=== PATIENT | female | born 1980 | race Caucasian/White ===

== ENCOUNTER 2016-12-10 18:02 | Inpatient (IN) | payer BC ==
[~2016-12-10] VITALS: Ht 167.6 cm; Wt 101.1 kg
[~2016-12-10 18:02] MED LIST: BACT800T5 PO; CEPH500C3 PO; IBUP-238 PO; MEDR4PAK3 PO; PERC5TAB12 PO
[2016-12-10 18:05] VITALS: BP 140/95; PULSE 104; RESP 20; TEMP 97.8; O2SAT 100
[2016-12-10] MEDS ORDERED: SODIUM CHLOR 0.9% 1000 ML INJ 1,000 ML IV ONE ×2 (19:01→21:45)
--- NOTE | 2016-12-10 19:09 | PD ---
HPI Chief Complaint: Abnormal Results Time Seen by Provider: 19:01 Travel History International Travel<30 days: No Contact w/Intl Traveler<30days: No Traveled to known affect area: No History of Present Illness HPI 36-year-old female presents to the emergency department sent by Dr. Simone dunn for elevated CK of almost 7000. She states she has been having muscle pain and generalized weakness for a couple of weeks. He sent her for laboratory yesterday thinking she had autoimmune disease. He did put her on prednisone. She states she is feeling better with the prednisone. However, he called her today instructed to come the emergency department. Patient denies any recent trauma. She denies any new exercise routines. Patient states she is on Celexa as well. She denies any chance of . No chest pain. No fevers or chills. She states that she has leg pain, arm pain, back pain with movement only. [facility] Past Medical History LMP: 11/13/16 : 1 Para: 1 Past Surgical History Abdominal Surgery: Yes (GASTRIC BYPASS 2005) Tympanostomy Tube: Yes Social History Alcohol Use: No Tobacco Use: No Substance Use: No Allergies-Medications (Allergen,Severity, Reaction): Coded Allergies: No Known Allergies (Verified , 12/10/16) Reported Meds & Prescriptions Reported Meds & Active Scripts Active Reported Celexa (Citalopram Hydrobromide) 10 Mg Tab 10 Mg PO DAILY Prednisone 20 Mg Tab 60 Mg PO DAILY Review of Systems Except as stated in HPI: all other systems reviewed are Neg Physical Exam Narrative GENERAL: Well-nourished, well-developed female patient, ambulatory. Afebrile. SKIN: Focused skin assessment warm/dry. HEAD: Normocephalic. Atraumatic. EYES: No scleral icterus. No injection or drainage. NECK: Supple, trachea midline. No JVD or lymphadenopathy. CARDIOVASCULAR: Regular rate and rhythm without murmurs, gallops, or rubs. RESPIRATORY: Breath sounds equal bilaterally. No accessory muscle use. Lungs sounds are clear to auscultation GASTROINTESTINAL: Abdomen soft, non-tender, nondistended. MUSCULOSKELETAL: No cyanosis, or edema. BACK: Nontender without obvious deformity. No CVA tenderness. Data Data Last Documented VS Vital Signs Date Time Temp Pulse Resp B/P (MAP) Pulse Ox O2 Delivery O2 Flow Rate FiO2 12/10/16 20:44 75 20 123/59 (80) 98 12/10/16 19:53 Room Air 12/10/16 19:51 98.6 Orders Orders Electrocardiogram (12/10/16 19:01) Ed Urine Pregnancytest Poc (12/10/16 19:01) Complete Blood Count With Diff (12/10/16 19:01) Comprehensive Metabolic Panel (12/10/16 19:01) Magnesium (Mg) (12/10/16 19:01) Urinalysis - C+S If Indicated (12/10/16 19:01) Ecg Monitoring (12/10/16 19:01) Iv Access Insert/Monitor (12/10/16:01) Oximetry (12/10/16 19:01) Sodium Chloride 0.9% Flush (Ns Flush) (12/10/16 19:15) Sodium Chlor 0.9% 1000 Ml Inj (Ns 1000 M (12/10/16 19:01) Creatine Kinase (Cpk) (12/10/16 19:01) CKMB (12/10/16 20:15) CKMB% (12/10/16 20:15) Sodium Chlor 0.9% 1000 Ml Inj (Ns 1000 M (12/10/16 21:45) Admit Order (Ed Use Only) (12/10/16 21:45) Labs Laboratory Tests Test 12/10/16 19:50 12/10/16 20:15 Urine Color LIGHT-YELLOW Urine Turbidity CLEAR Urine pH 6.5 Urine Specific [place] 1.010 Urine Protein NEG mg/dL Urine Glucose (UA) NEG mg/dL Urine Ketones NEG mg/dL Urine Occult Blood NEG Urine Nitrite NEG Urine Bilirubin NEG Urine Urobilinogen LESS THAN 2.0 MG/DL Urine Leukocyte Esterase SMALL Urine RBC LESS THAN 1 /hpf Urine WBC 3 /hpf Urine Squamous Epithelial Cells 1 /hpf Microscopic Urinalysis Comment CULT NOT INDICATED White Blood Count 12.0 TH/MM3 Red Blood Count 4.30 MIL/MM3 Hemoglobin 12.6 GM/DL Hematocrit 38.5 % Mean Corpuscular Volume 89.5 FL Mean Corpuscular Hemoglobin 29.3 PG Mean Corpuscular Hemoglobin Concent 32.7 % Red Cell Distribution Width 15.7 % Platelet Count 245 TH/MM3 Mean Platelet Volume 10.1 FL Neutrophils (%) (Auto) 72.9 % Lymphocytes (%) (Auto) 16.7 % Monocytes (%) (Auto) 9.7 % Eosinophils (%) (Auto) 0.2 % Basophils (%) (Auto) 0.5 % Neutrophils # (Auto) 8.8 TH/MM3 Lymphocytes # (Auto) 2.0 TH/MM3 Monocytes # (Auto) 1.2 TH/MM3 Eosinophils # (Auto) 0.0 TH/MM3 Basophils # (Auto) 0.1 TH/MM3 CBC Comment DIFF FINAL Differential Comment Blood Urea Nitrogen 11 MG/DL Creatinine 0.41 MG/DL Random Glucose 90 MG/DL Total Protein 6.8 GM/DL Albumin 3.5 GM/DL Calcium Level 8.6 MG/DL Magnesium Level 2.1 MG/DL Alkaline Phosphatase 54 U/L Aspartate Amino Transf (AST/SGOT) 205 U/L Alanine Aminotransferase (ALT/SGPT) 220 U/L Total Bilirubin 0.3 MG/DL Sodium Level 139 MEQ/L Potassium Level 3.5 MEQ/L Chloride Level 106 MEQ/L Carbon Dioxide Level 25.0 MEQ/L Anion Gap 8 MEQ/L Estimat Glomerular Filtration Rate 175 ML/MIN Total Creatine Kinase 5224 U/L Creatine Kinase MB 401.8 NG/ML Creatine Kinase MB % 7.7 % [facility] Medical Decision Making Medical Screen Exam Complete: Yes Emergency Medical Condition: Yes Medical Record Reviewed: Yes Differential Diagnosis Rhabdomyolysis versus electrolyte abnormality versus dehydration versus ANNETTE Narrative Course 36-year-old female presents to the emergency department sent by her primary care physician for elevated CK. EKG, CBC, CMP, CK, UA, urine test, magnesium are ordered and pending. Patient is given normal saline 1 L IV bolus. EKG shows SR, HR 69, no acute changes. CBC shows leukocytosis 12.0. CMP shows elevated AST 205, ALT 220. Magnesium is 2.1. CK is 5224. UA is negative for acute infection. UPT is negative. Patient is given a liter normal saline IV bolus. Dr. Galvan accepted admission. Diagnosis Primary Impression: Rhabdomyolysis Qualified Codes: M62.82 - Rhabdomyolysis Admitting Information Admitting Physician Requests: Admit Herbert Matajohn SANCHEZ Dec 10, 2016 19:09
[2016-12-10] MEDS ORDERED: SODIUM CHLORIDE 0.9% FLUSH 10 ML FLUSH IVF PRN (19:15)
[2016-12-10 19:51] VITALS: BP 130/83; PULSE 106; RESP 20; TEMP 98.6; O2SAT 100
[2016-12-10] MEDS ORDERED: PRED20 PO (20:09)
[2016-12-10] MEDS ORDERED: CELE10TA PO (20:09)
[2016-12-10 20:19] LABS: BLOOD, URINE NEG (NEG); COMMENT (UR) CULT NOT INDICATED; CULTURE IF INDICATED CULT NOT INDICATED; GLUCOSE,URINE NEG (NEG); KETONE, URINE NEG (NEG); NITRITE,URINE NEG (NEG); PH, URINE 6.5 (5.0-8.5); SQUAMOUS EPITHELIAL CELL URINE 1 /hpf (0-5); URINE COLOR LIGHT-YELLOW (YELLW/STRAW)
[2016-12-10 20:41] LABS: AUTOMATED NEUTROPHIL # 8.8 TH/MM3 (1.8-7.7); BASOPHIL # 0.1 TH/MM3 (0-0.2); BASOPHIL % 0.5 % (0.0-2.0); EOSINOPHIL % 0.2 % (0.0-4.0); HEMATOCRIT 38.5 % (35.0-46.0); HEMO FLAGS DIFF FINAL; LYMPH % 16.7 % (9.0-44.0); MEAN CELL VOLUME 89.5 FL (80.0-100.0); MEAN CORPUSCULAR HEMOGLOBIN 29.3 PG (27.0-34.0); MEAN CORPUSCULAR HGB CONC 32.7 % (32.0-36.0); MONO % 9.7 % (0.0-8.0); NEUT % 72.9 % (16.0-70.0); PLATELET COUNT 245 TH/MM3 (150-450); RED CELL DISTRIBUTION WIDTH 15.7 % (11.6-17.2)
[2016-12-10 20:44] VITALS: BP 123/59; PULSE 75; RESP 20; O2SAT 98
[2016-12-10 20:54] LABS: ALT (GPT) 220 U/L (10-53); ANION GAP 8 MEQ/L (5-15); AST (GOT) 205 U/L (15-37); BLOOD UREA NITROGEN 11 MG/DL (7-18); CHLORIDE 106 MEQ/L (98-107); GLOMERULAR FILTRATION RATE 175 ML/MIN (>89); MAGNESIUM 2.1 MG/DL (1.5-2.5); POTASSIUM 3.5 MEQ/L (3.5-5.1); SODIUM (NA) 139 MEQ/L (136-145)
[2016-12-10 21:09] LABS: ALKALINE PHOSPHATASE 54 U/L (45-117); CREATINE KINASE 5224 U/L (26-192); TOTAL BILIRUBIN ADULT 0.3 MG/DL (0.2-1.0)
[2016-12-10 21:46] LABS: CKMB 401.8 NG/ML (0.5-3.6)
[2016-12-10] MEDS ORDERED: NALOXONE HCL 0.4 MG/ML AMP IV PRN (22:45)
[2016-12-10] MEDS ORDERED: SODIUM CHLORIDE 0.9% FLUSH 10 ML FLUSH IV FLUSH PRN (22:45)
[2016-12-10] MEDS: SODIUM CHLOR 0.9% 1000 ML INJ 1,000 ML IV SCH (22:48)
[2016-12-10 23:00] VITALS: BP 113/58; PULSE 90; RESP 20; O2SAT 100
[2016-12-11] VITALS (7 sets, daily range): BP systolic 94–123; BP diastolic 53–69; PULSE 65–88; RESP 16–18; TEMP 96.2–98.6; O2SAT 97–99
[2016-12-11 02:24] LABS: AUTOMATED NEUTROPHIL # 5.7 TH/MM3 (1.8-7.7); BASOPHIL % 0.4 % (0.0-2.0); EOSINOPHIL # 0.1 TH/MM3 (0-0.4); HEMATOCRIT 35.3 % (35.0-46.0); HEMO FLAGS DIFF FINAL; LYMPHOCYTE # 2.2 TH/MM3 (1.0-4.8); MEAN CELL VOLUME 90.7 FL (80.0-100.0); MEAN CORPUSCULAR HEMOGLOBIN 29.3 PG (27.0-34.0); MEAN CORPUSCULAR HGB CONC 32.3 % (32.0-36.0); MONO % 9.6 % (0.0-8.0); PLATELET COUNT 214 TH/MM3 (150-450); RED CELL DISTRIBUTION WIDTH 15.4 % (11.6-17.2); WHITE BLOOD COUNT 8.8 TH/MM3 (4.0-11.0)
[2016-12-11 02:55] LABS: ALT (GPT) 174 U/L (10-53); ANION GAP 7 MEQ/L (5-15); AST (GOT) 152 U/L (15-37); BICARBONATE 25.7 MEQ/L (21.0-32.0); BLOOD UREA NITROGEN 10 MG/DL (7-18); CHLORIDE 110 MEQ/L (98-107); GLOMERULAR FILTRATION RATE 165 ML/MIN (>89); POTASSIUM 3.1 MEQ/L (3.5-5.1); SODIUM (NA) 143 MEQ/L (136-145)
[2016-12-11 02:57] LABS: ALKALINE PHOSPHATASE 40 U/L (45-117); TOTAL BILIRUBIN ADULT 0.3 MG/DL (0.2-1.0)
[2016-12-11 04:27] LABS: CKMB 249.6 NG/ML (0.5-3.6)
--- NOTE | 2016-12-11 08:28 | EKG ---
Date Performed: 12/10/2016 Time Performed: 19:18:52 PTAGE: 36 years EKG: Sinus rhythm MINIMAL VOLTAGE CRITERIA FOR LVH, CONSIDER NORMAL VARIANT BORDERLINE ECG NO PREVIOUS TRACING DOCTOR: August Yee Interpretating Date/Time 12/11/2016 08:26:30
[2016-12-11] MEDS: SODIUM CHLOR 0.9% 1000 ML INJ 1,000 ML IV SCH (09:06)
[2016-12-11] MEDS: SODIUM CHLORIDE 0.9% FLUSH 10 ML FLUSH IV FLUSH SCH ×2 (09:07→23:43)
[2016-12-11 10:43] LABS: CKMB 265.1 NG/ML (0.5-3.6)
--- NOTE | 2016-12-11 13:14 | HHI.HP ---
[facility] Primary Care Physician Alex Myrick MD Admission Diagnosis rhabdomyolysis Diagnoses: Chief Complaint: muscle weakness and pain for 2 weeks Travel History International Travel<30 Days: No Contact w/Intl Traveler <30 Da: No Traveled to Known Affected Are: No History of Present Illness Patient is a very pleasant 36 eyars old female with no chronic medical condition who for the past 6-8 weeks has been complaining of muscle weakness mostly involving the proximal muscle of both upper and lower extremities. this can be better described as having difficulty with her usual ADLs like combing her hair, getting up from rthe chair taking her bra off.Patient denies any recent injury, fever or chills. She saw a chiropractor as outpatient who in turn sent her to Dr. Myrick who did some blood works and noted to have an elevated CPK. She was started on prednisone 60 mg for 5 days course and she has been on it for 3 days and stated improvement with symptoms. Patient was sent here due to elevated CK. Patient denies any other symptoms . No difficulty swallowing. Patient denies any low back pain no tingling sensation of both upper and lower extremity no neck pain. Patient is 2 para 2 last menstrual period is with regular cycles. Denies taking any other medications aside from Celexa Status Is Not on NSAIDs Review of Systems Constitutional: DENIES: Fever, Weight loss, Chills, Change in appetite Eyes: DENIES: Blurred vision, Double Vision Ears, nose, mouth, throat: DENIES: Tinnitus, Ear Pain, Epistaxis, Odynophagia Respiratory: DENIES: Cough, Hemoptysis, Sputum production, Shortness of breath Cardiovascular: DENIES: Chest pain, Palpitations, Dyspnea on Exertion, Lower Extremity Edema, Orthopnea Gastrointestinal: DENIES: Black stools, Bloody stools, Difficulty Swallowing, Anorexia Genitourinary: DENIES: Urgency, Hematuria, Vaginal discharge Musculoskeletal: DENIES: Joint pain, Stiffness Integumentary: DENIES: Pruritus Hematologic/lymphatic: DENIES: Bruising Immunologic/allergic: DENIES: Urticaria Neurologic: DENIES: Headache, Speech Problems, Tremor Psychiatric: DENIES: Suicidal Ideation, Homicidal Ideation Past Family Social History Past Medical History Anxiety disorder MIld anemia B12 deficiency Past Surgical History none Reported Medications Celexa Allergies: Coded Allergies: No Known Allergies (Verified , 12/10/16) Family History no history of rheumatologic disorders in the family Social History non smoker, very rare alcohol use, no substance abuse Physical Exam Vital Signs Vital Signs Date Time Temp Pulse Resp B/P (MAP) Pulse Ox O2 Delivery O2 Flow Rate FiO2 12/11/16 12:00 98.4 65 18 115/58 (77) 97 12/11/16 09:00 79 12/11/16 08:00 98.6 88 17 103/69 (80) 99 12/11/16 04:27 96.6 73 18 94/53 (67) 97 12/11/16 00:09 96.2 69 18 123/55 (77) 98 12/10/16 23:00 90 20 113/58 (76) 100 12/10/16 20:44 75 20 123/59 (80) 98 12/10/16 19:53 106 20 100 Room Air 12/10/16 19:51 98.6 106 20 130/83 (99) 100 Room Air 12/10/16 18:05 97.8 104 20 140/95 (110) 100 Room Air Physical Exam GENERAL: This is a well-nourished, well-developed patient, in no apparent distress. SKIN: No rashes, ecchymoses or lesions. Cool and dry. HEAD: Atraumatic. Normocephalic. No temporal or scalp tenderness. EYES: Pupils equal round and reactive. Extraocular motions intact. No scleral icterus. No injection or drainage. ENT: Nose without bleeding,. Throat without erythema, tonsillar hypertrophy or exudate. Uvula midline. Airway patent. NECK: Trachea midline. No JVD or lymphadenopathy. Supple, nontender, no meningeal signs. CARDIOVASCULAR: Regular rate and rhythm without murmurs, gallops, or rubs. RESPIRATORY: Clear to auscultation. Breath sounds equal bilaterally. No wheezes , rales, or rhonchi. GASTROINTESTINAL: Abdomen soft, non-tender, nondistended. No hepato-splenomegaly , or palpable masses. No guarding. MUSCULOSKELETAL: Specific exam of the proximal muscles shoulders and proximal muscles of the thigh with weakness. Slow steady gait. Grossly no sensory deficit Extremities without clubbing, cyanosis, or edema. No joint tenderness, effusion, or edema noted. No calf tenderness. Negative Homans sign bilaterally. NEUROLOGICAL: Awake and alert. Cranial nerves II through XII intact. Motor and sensory grossly within normal limits. Five out of 5 muscle strength in all muscle groups. Normal speech. Laboratory Laboratory Tests Test 12/10/16 19:50 12/10/16 20:15 12/11/16 02:05 12/11/16 09:34 Urine Color LIGHT-YELLOW Urine Turbidity CLEAR Urine pH 6.5 Urine Specific [place] 1.010 Urine Protein NEG Urine Glucose (UA) NEG Urine Ketones NEG Urine Occult Blood NEG Urine Nitrite NEG Urine Bilirubin NEG Urine Urobilinogen LESS THAN 2.0 Urine Leukocyte Esterase SMALL Urine RBC LESS THAN 1 Urine WBC 3 Urine Squamous Epithelial Cells 1 Microscopic Urinalysis Comment CULT NOT INDICATED White Blood Count 12.0 8.8 Red Blood Count 4.30 3.90 Hemoglobin 12.6 11.4 Hematocrit 38.5 35.3 Mean Corpuscular Volume 89.5 90.7 Mean Corpuscular Hemoglobin 29.3 29.3 Mean Corpuscular Hemoglobin Concent 32.7 32.3 Red Cell Distribution Width 15.7 15.4 Platelet Count 245 214 Mean Platelet Volume 10.1 9.3 Neutrophils (%) (Auto) 72.9 64.0 Lymphocytes (%) (Auto) 16.7 25.0 Monocytes (%) (Auto) 9.7 9.6 Eosinophils (%) (Auto) 0.2 1.0 Basophils (%) (Auto) 0.5 0.4 Neutrophils # (Auto) 8.8 5.7 Lymphocytes # (Auto) 2.0 2.2 Monocytes # (Auto) 1.2 0.8 Eosinophils # (Auto) 0.0 0.1 Basophils # (Auto) 0.1 0.0 CBC Comment DIFF FINAL DIFF FINAL Differential Comment Blood Urea Nitrogen 11 10 Creatinine 0.41 0.43 Random Glucose 90 84 Total Protein 6.8 5.7 Albumin 3.5 2.8 Calcium Level 8.6 7.9 Magnesium Level 2.1 Alkaline Phosphatase 54 40 Aspartate Amino Transf (AST/SGOT) 205 152 Alanine Aminotransferase (ALT/SGPT) 220 174 Total Bilirubin 0.3 0.3 Sodium Level 139 143 Potassium Level 3.5 3.1 Chloride Level 106 110 Carbon Dioxide Level 25.0 25.7 Anion Gap 8 7 Estimat Glomerular Filtration Rate 175 165 Total Creatine Kinase 5224 3761 3595 Creatine Kinase MB 401.8 249.6 265.1 Creatine Kinase MB % 7.7 6.6 7.4 Result Diagram: 12/11/1620412/11/16204 Caprini VTE Risk Assessment Caprini VTE Risk Assessment: No/Low Risk (score <= 1) Caprini Risk Assessment Model Point Value = 1 Point Value = 2 Point Value = 3 Point Value = 5 Age 41-60 Minor surgery BMI > 25 kg/m2 Swollen legs Varicose veins or History of unexplained or recurrent spontaneous Oral contraceptives or hormone replacement Sepsis (< 1 month) Serious lung disease, including pneumonia (< 1 month) Abnormal pulmonary function Acute myocardial infarction Congestive heart failure (< 1 month) History of inflammatory bowel disease Medical patient at bed rest Age 61-74 Arthroscopic surgery Major open surgery (> 45 min) Laparoscopic surgery (> 45 min) Malignancy Confined to bed (> 72 hours) Immobilizing plaster cast Central venous access Age >= 75 History of VTE Family history of VTE Factor V Leiden Prothrombin 52831C Lupus anticoagulant Anticardiolipin antibodies Elevated serum homocysteine Heparin-induced thrombocytopenia Other congenital or acquired thrombophilia Stroke (< 1 month) Elective arthroplasty Hip, pelvis, or leg fracture Acute spinal cord injury (< 1 month) Prophylaxis Regimen Total Risk Factor Score Risk Level Prophylaxis Regimen 0-1 Low Early ambulation 2 Moderate Order ONE of the following: *Sequential Compression Device (SCD) *Heparin 5000 units SQ BID 3-4 Higher Order ONE of the following medications: *Heparin 5000 units SQ TID *Enoxaparin/Lovenox 40 mg SQ daily (WT < 150 kg, CrCl > 30 mL/min) *Enoxaparin/Lovenox 30 mg SQ daily (WT < 150 kg, CrCl > 10-29 mL/min) *Enoxaparin/Lovenox 30 mg SQ BID (WT < 150 kg, CrCl > 30 mL/min) AND/OR *Sequential Compression Device (SCD) 5 or more Highest Order ONE of the following medications: *Heparin 5000 units SQ TID (Preferred with Epidurals) *Enoxaparin/Lovenox 40 mg SQ daily (WT < 150 kg, CrCl > 30 mL/min) *Enoxaparin/Lovenox 30 mg SQ daily (WT < 150 kg, CrCl > 10-29 mL/min) *Enoxaparin/Lovenox 30 mg SQ BID (WT < 150 kg, CrCl > 30 mL/min) AND *Sequential Compression Device (SCD) Assessment and Plan Assessment and Plan 36-year-old female with no chronic medical problems presenting with Proximal muscle weakness involving both upper and lower extremities- with elevated CK Very suspicious for autoimmune/rheumatologic disorders like polymyositis, dermatomyositis,\ Start patient on steroids -Continue on IV fluids. Monitor CK trending down. Patient has no creatinine elevation patient with good by mouth intake -We'll get an ESR CRP serum aldolase, TSH CPK level. The fact the patient improved with steroids will continue patient on steroids. Discussed with patient that she would need a rheumatologic workup specifically for this condition we don't have a rn travel at come to the hospital Gave her names of rheumatologists outpatient. To call for further workup. We can do an EMG studies here Continue IV fluids. PT/OT consult Elevated LFTs- related to likely autoimmune condition but we will go ahead and check HepBsAg and HCV Hypokalemia- replace IV and po Anxiety disorder continue on Celexa Start patient on PPI for GI prophylaxis while on steroids. If creatinine continues to trend down - DC planning- OP rehab- and OP rheumatology-to establish diagnosis Physician Certification 2 Midnight Certification Type: Admission for Inpatient Services Order for Inpatient Services The services are ordered in accordance with Medicare regulations or non- Medicare payer requirements, as applicable. In the case of services not specified as inpatient-only, they are appropriately provided as inpatient services in accordance with the 2-midnight benchmark. Estimated LOS (days): 2 days is the estimated time the patient will need to remain in the hospital, assuming treatment plan goals are met and no additional complications. Post-Hospital Plan: Not yet determined Sheila Dotson MD Dec 11, 2016 13:14
[2016-12-11] MEDS: POTASSIUM CHLORIDE 10 MEQ CONTROLLED RELEASE TAB PO SCH (14:42)
[2016-12-11] MEDS: PANTOPRAZOLE SOD 40 MG DELAYED RELEASE TAB PO SCH (14:42)
[2016-12-11] MEDS: predniSONE 50 MG TAB PO SCH (14:42)
[2016-12-11] MEDS: NS + KCL 20 MEQ INJ 1,000 ML IV SCH ×2 (14:45→23:43)
[2016-12-12] VITALS: BP 115/61; PULSE 80; RESP 17; TEMP 97.3; O2SAT 97
[2016-12-12 04:13] VITALS: BP 112/56; PULSE 79; RESP 16; TEMP 97.7; O2SAT 98
[2016-12-12 07:53] VITALS: BP 114/57; PULSE 74; RESP 18; TEMP 96.2; O2SAT 97
[2016-12-12 08:21] LABS: ANION GAP 8 MEQ/L (5-15); AST (GOT) 133 U/L (15-37); BICARBONATE 24.6 MEQ/L (21.0-32.0); BLOOD UREA NITROGEN 7 MG/DL (7-18); CHLORIDE 110 MEQ/L (98-107); GLOMERULAR FILTRATION RATE 232 ML/MIN (>89); POTASSIUM 3.7 MEQ/L (3.5-5.1); SODIUM (NA) 143 MEQ/L (136-145)
[2016-12-12 08:34] LABS: ALKALINE PHOSPHATASE 41 U/L (45-117); ALT (GPT) 160 U/L (10-53); CREATINE KINASE 3096 U/L (26-192); TOTAL BILIRUBIN ADULT 0.5 MG/DL (0.2-1.0)
[2016-12-12 08:55] LABS: CKMB 237.2 NG/ML (0.5-3.6)
[2016-12-12] MEDS: SODIUM CHLORIDE 0.9% FLUSH 10 ML FLUSH IV FLUSH SCH (09:00)
[2016-12-12] MEDS: PANTOPRAZOLE SOD 40 MG DELAYED RELEASE TAB PO SCH (09:19)
[2016-12-12] MEDS: POTASSIUM CHLORIDE 10 MEQ CONTROLLED RELEASE TAB PO SCH (09:19)
[2016-12-12] MEDS: predniSONE 50 MG TAB PO SCH (09:19)
[2016-12-12] MEDS: NS + KCL 20 MEQ INJ 1,000 ML IV SCH ×2 (09:20→15:45)
--- NOTE | 2016-12-12 11:12 | HHI.PR ---
Subjective Remarks patient feeling stronger- proximal muscle weakness - improving marked improvement- now able to lift and give hugs Objective Vitals Vital Signs Date Time Temp Pulse Resp B/P (MAP) Pulse Ox O2 Delivery O2 Flow Rate FiO2 12/12/16 07:53 96.2 74 18 114/57 (76) 97 12/12/16 04:13 97.7 79 16 112/56 (74) 98 12/12/16 00:00 97.3 80 17 115/61 (79) 97 12/11/16 20:00 98.1 76 16 123/67 (85) 98 12/11/16 16:00 97.1 79 18 123/62 (82) 97 12/11/16 12:00 98.4 65 18 115/58 (77) 97 I/O 12/11/16 12/11/16 12/11/16 12/12/16 12/12/16 12/12/16 07:00 15:00 23:00 07:00 15:00 23:00 Intake Total 360 ml 3044 ml 600 ml 480 ml Balance 360 ml 3044 ml 600 ml 480 ml Intake Oral 360 ml 600 ml 600 ml 480 ml IV Total 2444 ml # Voids 1 4 2 2 # Bowel Movements 0 0 Result Diagram: 12/11/16 0205 12/12/16 0729 Objective Remarks awake and aelrt anicteric lungs clear regular rhythm abdomen soft, notneder extremities no edema- proximal muscle- stronger- 5/5 gait steady A/P Assessment and Plan 36-year-old female with no chronic medical problems presenting with Proximal muscle weakness involving both upper and lower extremities- with elevated CK Very suspicious for autoimmune/rheumatologic disorders like polymyositis, dermatomyositis,\ Start patient on steroids- po Prednisone if CK trending down- dc over the weekend OP ff up with rheumatology- got an appt to see on this coming week Elevated LFTs- related to likely autoimmune condition/rhabdo hepBs Ag negative Hypokalemia- corrected Anxiety disorder continue on Celexa PPI for GI prophylaxis while on steroids. If creatinine continues to trend down - DC today- OT requested to see her for ADLs. DC today d/w her Prednisone- care home effects-have PCP monitor glucose ADl as tolerated Meds- Prednisone 50 mg daily KCL 20 meq po daily PCP ff up with Dr. Myrick and OP referral to sales designer d/w patient and at length Sheila Dotson MD Dec 12, 2016 11:12
[2016-12-12 11:42] VITALS: BP_SYST 104; BP_SYST 121; BP_DIAS 51; BP_DIAS 69; PULSE 75; PULSE 90; RESP 18; TEMP 96.7; TEMP 97.5; O2SAT 97
[2016-12-12 15:42] VITALS: BP 106/70; PULSE 82; RESP 17; TEMP 98.6; O2SAT 98
[2016-12-12] MEDS ORDERED: PRED50 PO (16:50)
[2016-12-12] MEDS ORDERED: POTA-163 PO (16:59)
== END 2016-12-12 20:46 | disposition home or self-care (01) | DRG 558 ==
LOC: NEPE 18:02 → NEDA 21:47 → N06B 23:50
PROVIDERS: ADMIT Internal Medicine; ATTEND Internal Medicine
DX: M62.82 Rhabdomyolysis (principal); E87.6 Hypokalemia; F41.9 Anxiety disorder, unspecified; R74.8 Abnormal levels of other serum enzymes; M35.9 Systemic involvement of connective tissue, unspecified; Z98.84 Bariatric surgery status
CPT/HCPCS: 80053; 81001; 82085; 82550; 82552; 83735; 84443; 84703; 85025; 85652; 86038; 86140; 87340; 93005; 96360; J3480; J7030; J7512

== ENCOUNTER → 2017-01-13 | Day surgery (SDC) | payer BC ==
[~2017-01-13] MED LIST changes: +ACETAMINOPHEN 1000 MG/100 ML 100 ML IV ONE; -BACT800T5 PO; +BUPIVACAINE/EPINEPHRINE 0.5% PF 10 ML VIAL ONE; +CELE10TA PO; -CEPH500C3 PO; -IBUP-238 PO; +LACTATED RINGER'S 1000 ML INJ 1,000 ML ONE; +LIDOCAINE 1.5%/EPINEPHrine 1:200,000 PF SOLN 30 ML AMP ONE; -MEDR4PAK3 PO; +MIDAZOLAM HCL 2 MG/2 ML VIAL ONE; +ONDANSETRON HCL 4 MG/2 ML VIAL IV PUSH ONE; -PERC5TAB12 PO; +POTA-163 PO; +PRED20 PO; +PRED50 PO; +PROPOFOL 1000 MG/100 ML BTL IV ONE; +SODIUM CHLORIDE 0.9% INJ 10 ML ONE
--- NOTE | 2017-01-13 11:48 | MP ---
cc: AUGIE WRIGHT DATE OF SURGERY: 01/13/2017 PREOPERATIVE DIAGNOSIS Muscle weakness. POSTOPERATIVE DIAGNOSIS Muscle weakness. PROCEDURE Left quadriceps muscle biopsy. SURGEON Raúl. DELIVERY DIRECTOR Porter Medina, MS III. ANESTHESIA Local with MAC. OPERATIVE PROCEDURE The patient was brought to the operating room and after satisfactory sedation by Anesthesia, the left lower extremity was prepped and draped in the usual sterile fashion. The site of biopsy was selected without problem. The skin was anesthetized with 0.5% Marcaine with epinephrine after which a longitudinal incision was made and carried down sharply through the subcutaneous tissue, with cautery being used for hemostasis. The incision was deepened in the fascia where upon further Marcaine was infiltrated into the muscle area. The fascia was then incised longitudinally and the muscle dissected free bluntly. The proper length of muscle was selected and grasped at either end with Allis forceps and the muscle elevated anteriorly. The muscle was then taken with cautery to transect it and it was then placed on the muscle carrier and passed for permanent pathology. Hemostasis was strictly assured after which the fascia was closed with a running 3-0 Vicryl suture. The deep dermal layer was closed with interrupted 3-0 Vicryl suture and the skin closed with interrupted 4-0 PDS subcuticular stitches. Steri-Strips and sterile drapes were placed and the patient was then awakened and taken from the operating room, in satisfactory condition, having tolerated the procedure without problem. Estimated blood loss was nil. The instrument, sponge and needle counts were reported as being correct x2 at the end of the procedure. MD LEN Lockwood/ELFEGO /11:18 AM /11:40 AM
== END | disposition home or self-care (01) ==
LOC: ESDC 08:39
PROVIDERS: ATTEND Surgery
DX: M62.81 Muscle weakness (generalized) (principal)
CPT/HCPCS: 01250; 20205; J0131; J2250; J2405; J3010; J7120

== ENCOUNTER → 2017-02-02 | Outpatient (CLI) | payer BC ==
[~2017-02-02] MED LIST changes: -ACETAMINOPHEN 1000 MG/100 ML 100 ML IV ONE; -BUPIVACAINE/EPINEPHRINE 0.5% PF 10 ML VIAL ONE; -LACTATED RINGER'S 1000 ML INJ 1,000 ML ONE; -LIDOCAINE 1.5%/EPINEPHrine 1:200,000 PF SOLN 30 ML AMP ONE; -MIDAZOLAM HCL 2 MG/2 ML VIAL ONE; -ONDANSETRON HCL 4 MG/2 ML VIAL IV PUSH ONE; -PROPOFOL 1000 MG/100 ML BTL IV ONE; -SODIUM CHLORIDE 0.9% INJ 10 ML ONE
--- NOTE | 2017-02-04 10:54 | RSPPFT ---
DATE OF PROCEDURE: 02/02/17 COMMENTS: Spirometry with FVC of 3.5, FEV1 of 1.5, FEV1/FVC ratio at 44%. Slow vital capacity is 100% of predicted. TLC is 99%. Diffusion capacity is normal. IMPRESSION: 1. Moderately severe airways obstruction. 2. Positive and significant response to acutely inhaled bronchodilator. 3. No evidence of airways restriction. 4. Normal diffusion capacity. Very unusual for patient to have total relief of obstruction with inhaled bronchodilator. The spirometry part of this test would probably need to be repeated sometime in the future.
== END ==
LOC: HRSP 09:51
PROVIDERS: ATTEND Internal Medicine Rheumatology
DX: M60.9 Myositis, unspecified (principal); J98.8 Other specified respiratory disorders
CPT/HCPCS: 94060; 94726; 94729

== ENCOUNTER → 2017-04-10 | Outpatient (CLI) | payer BC ==
--- NOTE | 2017-04-15 08:46 | RSPPFT ---
DATE OF PROCEDURE: 04/10/17 COMMENTS: Spirometry shows FVC of 4.0 at 111% of predicted, FEV1 of 2.6 at 88%, FEV1/FVC ratio is decreased. Flow is normal at FEF 25, FEF 50, FEF 75 and FEF 25-75. There is a good response after acutely inhaled bronchodilator treatment. Flow volume loop indicates a normal pattern. IMPRESSION: 1. Normal spirometry. 2. Good response after bronchodilator treatment.
== END ==
LOC: HRSP 09:43
PROVIDERS: ATTEND Specialist
DX: J45.20 Mild intermittent asthma, uncomplicated (principal)

== ENCOUNTER → 2017-05-14 | Outpatient (CLI) | payer OTHER, BC | LOC: CLAB 08:31 | PROVIDERS: ATTEND Psychiatry & Neurology Neurology | DX: M33.20 Polymyositis, organ involvement unspecified (principal) | CPT/HCPCS: 36415; 82550 ==

== ENCOUNTER → 2017-06-17 | Outpatient (CLI) | payer OTHER, BC | LOC: CLAB 08:56 | PROVIDERS: ATTEND Psychiatry & Neurology Neurology | DX: M33.20 Polymyositis, organ involvement unspecified (principal) | CPT/HCPCS: 36415; 82550 ==

== ENCOUNTER → 2017-07-17 | Outpatient (CLI) | payer OTHER, BC | LOC: CLAB 08:21 | PROVIDERS: ATTEND Psychiatry & Neurology Neurology | DX: M33.20 Polymyositis, organ involvement unspecified (principal) | CPT/HCPCS: 36415; 82550 ==

== ENCOUNTER → 2017-08-17 | Outpatient (CLI) | payer OTHER, BC | LOC: CLAB 08:17 | PROVIDERS: ATTEND Psychiatry & Neurology Neurology | DX: M33.20 Polymyositis, organ involvement unspecified (principal) | CPT/HCPCS: 36415; 82550; 82552 ==

== ENCOUNTER → 2017-09-16 | Outpatient (CLI) | payer BC, OTHER | LOC: CLAB 12:13 | PROVIDERS: ATTEND Psychiatry & Neurology Neurology | DX: M33.20 Polymyositis, organ involvement unspecified (principal) | CPT/HCPCS: 36415; 82550 ==

== ENCOUNTER → 2017-10-15 | Outpatient (CLI) | payer OTHER | LOC: CLAB 12:02 | PROVIDERS: ATTEND Psychiatry & Neurology Neurology | DX: M33.20 Polymyositis, organ involvement unspecified (principal) | CPT/HCPCS: 36415; 82550 ==